=== PATIENT | female | born 1995 | race Caucasian/White ===

== ENCOUNTER 2019-03-28 11:26 | Emergency (ER) | payer MEDICAID ==
[2019-03-28 11:49] VITALS: BP 128/85
--- NOTE | 2019-03-28 11:56 | EDM.PDOC ---
ED HPI GENERAL MEDICAL PROBLEM - General Chief Complaint: General Stated Complaint: Right ankle strain Time Seen by Provider: 03/28/19 11:30 Source of Information: Reports: Patient History Limitations: Reports: No Limitations - History of Present Illness INITIAL COMMENTS - FREE TEXT/NARRATIVE: According to patient she was climbing a step and twisted her right ankle and sprained her ankle last night around 2 am at home. She went to bed. But when she woe up today, she could not put any weight on the ankle as it was hurting. Also she has noticed swelling over the lateral aspect of the right ankle. Hence she did place air cast on the ankle and come into emergency room. No other injury or complaints. Onset Date: 03/28/19 Onset Time: 02:00 Location: Reports: Lower Extremity, Right Quality: Reports: Ache Severity: Moderate Improves with: Reports: Immobilization Associated Symptoms: Denies: Confusion, Chest Pain, Cough, Diaphoresis, Fever/ Chills, Headaches, Nausea/Vomiting, Rash, Seizure, Weakness Treatments BUSINESS TAXES SPECIALIST: Reports: Other (see below) Other Treatments BUSINESS TAXES SPECIALIST: ankle brace applied Right Ankle Pain Score (Numeric/FACES): 6 - Related Data Allergies Allergy/AdvReac Type Severity Reaction Status Date / Time azithromycin [From Zithromax] Allergy Hives Verified 11/06/15 17:03 metronidazole [From Flagyl] Allergy Hives Verified 11/06/15 17:03 nickel Allergy Hives Verified 11/06/15 17:03 Home Meds: Home Meds FLUoxetine [PROzac] 20 mg PO DAILY 10/02/15 [History] Past Medical History - Past Health History Medical/Surgical History: Denies Medical/Surgical History Genitourinary History: Reports: UTI, Recurrent 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: left 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 Psychiatric History: Reports: Anxiety, Depression Social & Family History - Family History Family Medical History: Noncontributory - Living Situation & Occupation Occupation: Employed ED ROS GENERAL - Review of Systems Review Of Systems: See Below Constitutional: Denies: Fever, Chills HEENT: Denies: Rhinitis, Sinus Problem Respiratory: Denies: Cough, Sputum Cardiovascular: Denies: Chest Pain, Lightheadedness GI/Abdominal: Denies: Nausea, Vomiting Musculoskeletal: Reports: Joint Pain, Joint Swelling Skin: Denies: Bruising, Pruritis, Rash, Wound ED EXAM, GENERAL - Physical Exam Exam: See Below Exam Limited By: No Limitations General Appearance: Alert, WD/WN, No Apparent Distress Eye Exam: Bilateral Eye: EOMI, PERRL Ears: Normal External Exam, Normal Canal, Hearing Grossly Normal, Normal TMs Ear Exam: Bilateral Ear: Auricle Normal, Canal Normal, TM normal Nose: Normal Inspection, Normal Mucosa, No Blood Throat/Mouth: Normal Inspection, Normal Lips, Normal Teeth, Normal Gums, Normal Oropharynx, Normal Voice, No Airway Compromise Head: Atraumatic, Normocephalic Neck: Normal Inspection, Supple, Non-Tender, Full Range of Motion Respiratory/Chest: No Respiratory Distress, Lungs Clear, Normal Breath Sounds, No Accessory Muscle Use, Chest Non-Tender Cardiovascular: Normal Peripheral Pulses, Regular Rate, Rhythm, No Edema, No Gallop, No JVD, No Murmur, No Rub Extremities: Normal Range of Motion, Normal Capillary Refill, Other (Right ankle : there is swelling noted over the lateral asepct of the ankle. She does have good ROM. She is able to weight bear but painful. Tender over the distal lateral malleolus) Course - Vital Signs Text/Narrative:: Pt's right ankle Xray appears normal. Pt advised to wear the brian cast around the ankle for 1 wk. Motrin 600mg 3 times daily for 1 wk as needed for pain. Elevate the extremity. Alternate heat and cold every 3-4 hrs for 24 hrs, followed by intermittent heat 3-4 times daily. Pain should gradually improve. Last Recorded V/S: Last Vital Signs Temp 98.8 F 03/28/19 11:38 Pulse Resp 18 03/28/19 11:38 BP 128/85 03/28/19 11:38 Pulse Ox 98 03/28/19 11:38 - Orders/Labs/Meds Orders: Active Orders 24 hr Category Date Time Status Ankle Min 3V Rt [CR] Stat Exams 03/28/19 11:32 Ordered Departure - Departure Time of Disposition: 12:00 Disposition: Home, Self-Care 01 Condition: Fair Clinical Impression: Ankle sprain - Discharge Information *PRESCRIPTION DRUG MONITORING PROGRAM REVIEWED*: Not Applicable *COPY OF PRESCRIPTION DRUG MONITORING REPORT IN PATIENT INA: Not Applicable Additional Instructions: Pt's right ankle Xray appears normal. Pt advised to wear the brian cast around the ankle for 1 wk. Motrin 600mg 3 times daily for 1 wk as needed for pain. Elevate the extremity. Alternate heat and cold every 3-4 hrs for 24 hrs, followed by intermittent heat 3-4 times daily. Pain should gradually improve. - Problem List & Annotations (1) Ankle sprain SNOMED Code(s): 78340138 Code(s): S93.409A - SPRAIN OF UNSP LIGAMENT OF UNSPECIFIED ANKLE, INIT ENCNTR Status: Acute Current Visit: Yes Onset Date: 11/06/15 - Problem List Review Problem List Initiated/Reviewed/Updated: Yes - My Orders Last 24 Hours: My Active Orders 03/28/19 11:32 Ankle Min 3V Rt [CR] Stat - Assessment/Plan Last 24 Hours: My Active Orders 03/28/19 11:32 Ankle Min 3V Rt [CR] Stat Assessment:: Right ankle sprain Plan: Pt's right ankle Xray appears normal. Pt advised to wear the brian cast around the ankle for 1 wk. Motrin 600mg 3 times daily for 1 wk as needed for pain. Elevate the extremity. Alternate heat and cold every 3-4 hrs for 24 hrs, followed by intermittent heat 3-4 times daily. Pain should gradually improve.
--- NOTE | 2019-03-28 21:08 | CR ---
CLINICAL DATA: Twisted her ankle. RIGHT ANKLE, 28 MARCH 2019: There is mild soft tissue swelling over the lateral malleolus. No acute fracture or dislocation. No lytic or blastic bone lesions. Job: [id number] [facility]
== END 2019-03-28 11:57 | disposition home or self-care (01) ==
LOC: LB.ED 11:26
DX: S93.401A Sprain of unspecified ligament of right ankle, initial encounter (principal); F32.9 Major depressive disorder, single episode, unspecified; Z88.1 Allergy status to other antibiotic agents; Z91.048 Other nonmedicinal substance allergy status; X50.1XXA Overexertion from prolonged static or awkward postures, initial encounter; Y92.009 Unspecified place in unspecified non-institutional (private) residence as the place of occurrence of the external cause; Y93.9 Activity, unspecified
CPT/HCPCS: 73610-RT; 99283; 99283-25

== ENCOUNTER 2019-10-02 13:53 | Emergency (ER) | payer MEDICAID ==
[2019-10-02 14:16] VITALS: BP 134/97; PULSE 107
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
[2019-10-02] MEDS ORDERED: busPIRone 10 MG Tab ONE (18:00)
[2019-10-02] MEDS ORDERED: FLUoxetine 20 MG Cap ONE (18:00)
== END 2019-10-02 18:20 | disposition home or self-care (01) ==
LOC: LB.ED 13:53
DX: F41.0 Panic disorder [episodic paroxysmal anxiety] (principal); R45.86 Emotional lability; F17.210 Nicotine dependence, cigarettes, uncomplicated; Z88.1 Allergy status to other antibiotic agents; Z91.09 Other allergy status, other than to drugs and biological substances; F32.9 Major depressive disorder, single episode, unspecified; Z79.899 Other long term (current) drug therapy
CPT/HCPCS: 99283; A9270

== ENCOUNTER 2020-01-17 13:07 | Emergency (ER) | payer MEDICAID | END 2020-01-17 14:15 | disposition home or self-care (01) | LOC: LB.ED 13:07 | DX: Z20.828 Contact with and (suspected) exposure to other viral communicable diseases (principal); Z53.21 Procedure and treatment not carried out due to patient leaving prior to being seen by health care provider | CPT/HCPCS: 99281; U0002 ==

== ENCOUNTER 2020-01-31 00:55 | Emergency (ER) | payer MEDICAID ==
[2020-01-31 01:39] VITALS: BP 120/61; PULSE 87
[2020-01-31] MEDS ORDERED: Ketorolac 30 MG/ML SDV IVPUSH ONE (02:40)
[2020-01-31] MEDS ORDERED: Ketorolac 30 MG/ML SDV ONE (02:51)
--- NOTE | 2020-01-31 04:40 | ER ---
REASON FOR EMERGENCY ROOM VISIT: Abdominal pain. HISTORY: This 24-year-old woman came in this evening with approximately 6 to 7 hour history of left lower quadrant abdominal pain. She states that she partied hard on the night before last and drank a great deal of beer until 4 o'clock yesterday morning. She awoke later in the morning and felt hung over and felt a little shaky, so she had a beer to help with her shakiness as well to settle down her shaky stomach which she attributed to her excessive drinking the night before. Yesterday evening, around 7 p.m. she shortly after having drinking that beer she develops rather steady gradual onset of left lower quadrant pain that seemed to increase with movement such as walking briskly or even coughing. She denied any nausea, vomiting, diarrhea, fever, or urinary symptoms. She had normal bowel movements x2 yesterday. She has not had any fever or chills. Her last normal menstrual period was 2 weeks ago. She is sexually active and her partner is using condoms, but not consistently. At the present time, she describes her pain at 4 on a scale of 1 to 10. PAST MEDICAL HISTORY: 1. 2, para 2. 2. Ovarian cyst. 3. GERD. 4. History of anxiety. 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 She drinks alcohol and is an active smoker. She is with 2 children. MEDICATIONS: None. ALLERGIES: TO AZITHROMYCIN, METRONIDAZOLE, AND NICKEL. REVIEW OF SYSTEMS: Pertinent positives and negatives as listed in the HPI. PHYSICAL EXAMINATION: GENERAL: She is calm, pleasant, in no acute distress. VITAL SIGNS: She is afebrile. Heart rate is 87, blood pressure 120/61, respiratory rate 16, O2 sats 100% on room air. HEENT: Head is normocephalic. No conjunctivitis or scleral icterus. Oropharynx is normal. NECK: Supple. No adenopathy. CHEST: Clear to auscultation with good air exchange and no wheezes, rhonchi, or rales. CARDIAC: Regular rate without murmur. ABDOMEN: Mildly obese, nondistended. Bowel sounds are present. Her abdomen is soft. There is no localized tenderness at this time. There is no guarding, rebound, or percussion tenderness. No palpable mass. No hepatosplenomegaly is noted. PELVIC: Bimanual Pelvic examination, she is nontender. No palpable masses. No adnexal masses are noted. EXTREMITIES: Normal pulses. No edema. No deformities. SKIN: No rashes. LABORATORY DATA: Her CBC does show that she has a mild elevation of her WBCs at 14,100. Her hemoglobin is 13.0. Her CMP is normal except a mild decreased potassium at 3.3. Her urinalysis is unremarkable. She has no pyuria or bacteriuria. Leukocyte esterase and urinary nitrites are negative. IMPRESSION: 1. Left lower quadrant pain without significant physical findings of short duration. 2. Elevated white count, etiology uncertain at this time. PLAN: At this point, I think a sensible thing would be to keep an eye on things. However, if her pain worsens at any time or if it is still persistent later on today, perhaps in late afternoon, she should come back and be rechecked. If it resolves on its own, then that is fine. We did do urinary test and that was negative. She was informed of this. I told her to stay on clear liquids for the rest of the morning and then advance her diet slowly as tolerated later on the day if she is feeling better. Should she experience fever or chills, certainly she should be looked out again. If she returns, we may consider a CT scan and she understands this. All questions were answered. She agrees with this plan. THERESA /[id number]
== END 2020-01-31 02:54 | disposition home or self-care (01) ==
LOC: LB.ED 00:55
DX: R10.32 Left lower quadrant pain (principal); D72.829 Elevated white blood cell count, unspecified; F17.200 Nicotine dependence, unspecified, uncomplicated; Z88.1 Allergy status to other antibiotic agents; Z91.09 Other allergy status, other than to drugs and biological substances
CPT/HCPCS: 36415; 80048; 81001; 81025; 85025; 96374; 99284; J1885; 99282